=== PATIENT | female | born 1990 | race Caucasian/White ===

== ENCOUNTER 2018-11-23 08:57 | Emergency (ER) | payer OTHER ==
[~2018-11-23 08:57] MED LIST: PREN-88 PO
== END 2018-11-23 09:49 | disposition left against medical advice (07) ==
LOC: ER 09:06
DX: Z53.21 Procedure and treatment not carried out due to patient leaving prior to being seen by health care provider (principal)

== ENCOUNTER 2020-01-01 12:29 | Emergency (ER) | payer MEDICAID, OTHER ==
[~2020-01-01] VITALS: Ht 167.6 cm; Wt 66.2 kg
[2020-01-01 15:26] LABS: CLARITY URINE CLOUDY (CLEAR); COLOR URINE YELLOW (YELLOW); KETONES URINE NEGATIVE (NEGATIVE); LEUKOCYTE ESTERASE URINE 1+ (NEGATIVE); NITRITE URINE NEGATIVE (NEGATIVE); OCCULT BLOOD URINE 1+ (NEGATIVE); PH URINE 6.5 (4.5-8.0); PROTEIN URINE TRACE (NEGATIVE); SPECIFIC GRAVITY URINE 1.029 (1.005-1.030)
[2020-01-01 15:56] VITALS: BP 134/69
== END 2020-01-01 15:57 | disposition home or self-care (01) ==
LOC: ER 12:29
DX: N39.0 Urinary tract infection, site not specified (principal)
CPT/HCPCS: 81003; 81025; 99283

== ENCOUNTER 2021-08-28 05:17 | Emergency (ER) | payer MEDICAID ==
[~2021-08-28] VITALS: Ht 162.6 cm; Wt 69.0 kg
[2021-08-28] MEDS ORDERED: PREDNISONE 20MG TABLET PO ONE (06:30)
[2021-08-28] MEDS ORDERED: PERM60CR4 TP (06:34)
[2021-08-28] MEDS ORDERED: DIPH25CA83 PO (06:34)
[2021-08-28] MEDS ORDERED: P50 MT (06:34)
[2021-08-28 06:35] VITALS: BP 131/84
== END 2021-08-28 06:44 | disposition home or self-care (01) ==
LOC: ER 05:17
DX: R21 Rash and other nonspecific skin eruption (principal)
CPT/HCPCS: 81025; 99282; 99283

== ENCOUNTER 2023-04-30 10:41 | Emergency (ER) | payer MEDICAID, OTHER ==
[~2023-04-30] VITALS: Ht 154.9 cm; Wt 55.5 kg
[~2023-04-30 10:41] MED LIST changes: +DIPH25CA83 PO; +P50 MT; +PERM60CR4 TP
[2023-04-30 11:20] VITALS: O2SAT 100
[2023-04-30] MEDS ORDERED: IBUPROFEN 600MG TABLET PO ONE (12:45)
[2023-04-30] MEDS ORDERED: CEPH500T MT (13:01)
[2023-04-30] MEDS ORDERED: BO1 TP (13:01)
[2023-04-30 13:20] VITALS: BP 135/74; PULSE 83; RESP 16; TEMP 98.1
== END 2023-04-30 13:30 | disposition home or self-care (01) ==
LOC: ER 10:41
DX: L03.115 Cellulitis of right lower limb (principal); S70.261A Insect bite (nonvenomous), right hip, initial encounter; Z90.49 Acquired absence of other specified parts of digestive tract; W57.XXXA Bitten or stung by nonvenomous insect and other nonvenomous arthropods, initial encounter; Y93.89 Activity, other specified; Y92.89 Other specified places as the place of occurrence of the external cause; Y99.8 Other external cause status
CPT/HCPCS: 99283

== ENCOUNTER 2024-04-02 02:31 | Emergency (ER) | payer MEDICAID ==
[~2024-04-02] VITALS: Ht 157.5 cm; Wt 72.0 kg
[~2024-04-02 02:31] MED LIST changes: +BO1 TP; +CEPH500T MT
[2024-04-02 02:45] VITALS: O2SAT 97
[2024-04-02] MEDS ORDERED: CLIN-194 MT (04:21)
[2024-04-02 05:00] VITALS: BP 113/58; PULSE 82; RESP 14; TEMP 97.3
== END 2024-04-02 05:00 | disposition home or self-care (01) ==
LOC: ER 02:52
DX: K02.9 Dental caries, unspecified (principal); K08.89 Other specified disorders of teeth and supporting structures; Z90.49 Acquired absence of other specified parts of digestive tract
CPT/HCPCS: 99281

== ENCOUNTER 2024-04-22 02:10 | Emergency (ER) | payer MEDICAID ==
[~2024-04-22] VITALS: Ht 154.9 cm; Wt 74.0 kg
[~2024-04-22 02:10] MED LIST changes: +CLIN-194 MT
[2024-04-22 03:28] VITALS: O2SAT 96
[2024-04-22] MEDS ORDERED: AMOX1TAB16 MT (05:54)
[2024-04-22 06:26] VITALS: BP 130/89; PULSE 111; RESP 18; TEMP 98.1
== END 2024-04-22 06:28 | disposition home or self-care (01) ==
LOC: ER 02:10
DX: K04.7 Periapical abscess without sinus (principal); Z79.899 Other long term (current) drug therapy
CPT/HCPCS: 99283